=== PATIENT | male | born 1995 | race Caucasian/White ===

== ENCOUNTER 2017-07-06 14:51 | Emergency (ER) | payer OTHER ==
--- NOTE | 2017-07-06 15:03 | ER Report ---
History and Physical Time Seen By MD: 15:02 HPI/ROS CHIEF COMPLAINT: Fatigue, racing heart HISTORY OF PRESENT ILLNESS: 21-year-old male patient presents to emergency room with complaint of fatigue, racing heart. Patient states that he has been fatigued for the past week. He states that prior to that he did have a sore throat. He states he is not having any fevers, chills, nausea, vomiting or diarrhea. He states last night he was awoken in the middle the night by racing heart. He states that he laid there for a while was able to fall back asleep but felt concerned about his heart racing like he did. Patient states that he has not taken any medication for this. He denies any chest pain, nausea, vomiting or diarrhea. 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 REVIEW OF SYSTEMS: Respiratory: No cough, no dyspnea. Cardiovascular: As noted above Gastrointestinal: No vomiting, no abdominal pain. Musculoskeletal: No back pain. Allergies: Coded Allergies: No Known Drug Allergies (Unverified , 07/06/17) Home Meds No Active Prescriptions or Reported Meds Past Medical/Surgical History Patient has a past medical history of alcohol use. Patient has a surgical history of right shoulder surgery. Reviewed Nurses Notes: Yes Hx Substance Use Disorder: No Hx Alcohol Use: Yes (occ) Constitutional Vital Sign - Last 24 Hours 07/06/17 07/06/17 07/06/17 07/06/17 15:02 15:04 15:06 15:21 Temp 98.0 Pulse 64 72 58 Resp 18 9 B/P (MAP) 137/87 (104) 137/87 Pulse Ox 97 95 O2 Delivery Room Air 07/06/17 07/06/17 07/06/17 07/06/17 15:30 15:36 15:51 16:00 Pulse 52 62 Resp 12 16 B/P (MAP) 122/72 (89) 111/64 (80) Physical Exam General Appearance: The patient is alert, has no immediate need for airway protection and no current signs of toxicity. ENT: Tympanic membranes are pearly-le, auditory canals are patent, mixed mucous membranes are moist. Respiratory: Chest is non tender, lungs are clear to auscultation. Cardiac: regular rate and rhythm Gastrointestinal: Abdomen is soft and non tender, no masses, bowel sounds normal. Musculoskeletal: Neck: Neck is supple and non tender. Extremities have full range of motion and are non tender. Skin: No rashes or lesions. DIFFERENTIAL DIAGNOSIS: After history and physical exam differential diagnosis was considered for mononucleosis, tachycardia, abnormal escape rhythm. Medical Decision Making Data Points Result Diagram: 07/06/17 1515 07/06/17 1515 Laboratory Hematology Test 07/06/17 15:15 07/06/17 16:05 Red Blood Count 5.64 M/uL (4.00-5.60) Mean Corpuscular Volume 89.5 fL (80.0-96.0) Mean Corpuscular Hemoglobin 31.3 pg (26.0-33.0) Mean Corpuscular Hemoglobin Concent 35.0 g/dL (32.0-36.0) Red Cell Distribution Width 12.7 % (11.5-14.5) Mean Platelet Volume 8.3 fL (7.2-11.1) Neutrophils (%) (Auto) 79.9 % (39.4-72.5) Lymphocytes (%) (Auto) 12.6 % (17.6-49.6) Monocytes (%) (Auto) 6.6 % (4.1-12.4) Eosinophils (%) (Auto) 0.5 % (0.4-6.7) Basophils (%) (Auto) 0.4 % (0.3-1.4) Nucleated RBC Relative Count (auto) 0.0 /100WBC Neutrophils # (Auto) 7.3 K/uL (2.0-7.4) Lymphocytes # (Auto) 1.1 K/uL (1.3-3.6) Monocytes # (Auto) 0.6 K/uL (0.3-1.0) Eosinophils # (Auto) 0.0 K/uL (0.0-0.5) Basophils # (Auto) 0.0 K/uL (0.0-0.1) Nucleated RBC Absolute Count (auto) 0.00 K/uL Sodium Level 140 mmol/L (137-145) Potassium Level 4.0 mmol/L (3.5-5.0) Chloride Level 101 mmol/L (98-107) Carbon Dioxide Level 24 mmol/L (22-30) Blood Urea Nitrogen 13 mg/dl (9-21) Creatinine 1.20 mg/dl (0.66-1.25) Glomerular Filtration Rate Calc > 60.0 Random Glucose 106 mg/dl (75-110) Calcium Level 9.7 mg/dl (8.4-10.2) Total Bilirubin 1.4 mg/dl (0.2-1.3) Aspartate Amino Transf (AST/SGOT) 42 U/L (0-35) Alanine Aminotransferase (ALT/SGPT) 45 U/L (0-56) Alkaline Phosphatase 70 U/L (0-126) Total Protein 7.8 gm/dl (6.3-8.2) Albumin 4.7 g/dl (3.5-5.0) Monoscreen Negative (NEGATIVE) Group A Streptococcus Screen Negative (NEGATIVE) Chemistry Test 07/06/17 15:15 07/06/17 16:05 White Blood Count 9.1 k/uL (4.5-11.0) Red Blood Count 5.64 M/uL (4.00-5.60) Hemoglobin 17.7 g/dL (14.0-18.0) Hematocrit 50.5 % (42.0-52.0) Mean Corpuscular Volume 89.5 fL (80.0-96.0) Mean Corpuscular Hemoglobin 31.3 pg (26.0-33.0) Mean Corpuscular Hemoglobin Concent 35.0 g/dL (32.0-36.0) Red Cell Distribution Width 12.7 % (11.5-14.5) Platelet Count 255 K/uL (150-450) Mean Platelet Volume 8.3 fL (7.2-11.1) Neutrophils (%) (Auto) 79.9 % (39.4-72.5) Lymphocytes (%) (Auto) 12.6 % (17.6-49.6) Monocytes (%) (Auto) 6.6 % (4.1-12.4) Eosinophils (%) (Auto) 0.5 % (0.4-6.7) Basophils (%) (Auto) 0.4 % (0.3-1.4) Nucleated RBC Relative Count (auto) 0.0 /100WBC Neutrophils # (Auto) 7.3 K/uL (2.0-7.4) Lymphocytes # (Auto) 1.1 K/uL (1.3-3.6) Monocytes # (Auto) 0.6 K/uL (0.3-1.0) Eosinophils # (Auto) 0.0 K/uL (0.0-0.5) Basophils # (Auto) 0.0 K/uL (0.0-0.1) Nucleated RBC Absolute Count (auto) 0.00 K/uL Glomerular Filtration Rate Calc > 60.0 Calcium Level 9.7 mg/dl (8.4-10.2) Total Bilirubin 1.4 mg/dl (0.2-1.3) Aspartate Amino Transf (AST/SGOT) 42 U/L (0-35) Alanine Aminotransferase (ALT/SGPT) 45 U/L (0-56) Alkaline Phosphatase 70 U/L (0-126) Total Protein 7.8 gm/dl (6.3-8.2) Albumin 4.7 g/dl (3.5-5.0) Monoscreen Negative (NEGATIVE) Group A Streptococcus Screen Negative (NEGATIVE) EKG/Imaging EKG Interpretation 12 lead EKG: Rhythm: normal sinus rhythm with a ventricular rate of 60 bpm [place]: normal QRS: normal ST segments: normal Imaging Examination: CHEST PA AND LAT Comparison: 03/15/2017 History: Rapid heart rate last night. Findings: No consolidation, nodule, or peribronchial inflammation. No pneumothorax, edema, or effusion. Cardiac and hilar contour size is within normal limits. Right glenoid internal fixation. No acute osseous abnormality. IMPRESSION: No evidence of acute cardiopulmonary disease. Report Dictated By: Chris Morrissey MD at 07/06/2017 3:34 PM Report E-Signed By: Chris Morrissey MD at 07/06/2017 3:36 PM ED Course/Re-evaluation ED Course Patient was admitted and examined, history of physical or obtained. Differential diagnoses were considered. On examination lungs are clear, heart is regular. A CBC, CMP, strep screen, mono screen were done. Lab results were unremarkable, a chest x-ray and EKG were done which were also normal. I discussed the findings with the patient. Due to the rapid heart rate we will go ahead and place him on a Holter monitor so we can watch the heart for 48 hours. He is to bring them back in follow-up with Dr. Benson, physician at the [facility]. Patient verbalized understanding and agreement. He is to increase fluids, get plenty of rest. I did discuss the findings with the patient 's mother. Decision to Disposition Date: Jul 06, 2017 Decision to Disposition Time: 16:50 Depart Departure Latest Vital Signs Vital Signs Date Time Temp Pulse Resp B/P (MAP) Pulse Ox O2 Delivery O2 Flow Rate FiO2 07/06/17 16:00 111/64 (80) 07/06/17 15:51 62 16 07/06/17 15:06 95 07/06/17 15:04 98.0 Room Air Impression: Primary Impression: Racing heart beat Additional Impression: Fatigue Condition: Improved Disposition: HOME OR SELF-CARE New Scripts No Active Prescriptions or Reported Meds Patient Instructions: Fatigue (ED) Additional Instructions: Increase fluid intake. Get plenty of rest. Limit Caffeine use. Follow up with Dr. Benson this week. Return the Holter Monitor as directed. Return to the ER if condition worsens. Problem Qualifiers Additional Impression: Fatigue Fatigue type: unspecified Qualified Codes: R53.83 - Other fatigue JOVANNI LYON Jul 06, 2017 15:02
[2017-07-06 15:21] LABS: PLATELET COUNT, AUTOMATED 255 K/uL (150-450)
--- NOTE | 2017-07-06 15:29 | EKG ---
FACILITY: [facility] [place] PATIENT NAME: KASI ZIMMERMAN : [id number] MR: [id number] V: [id number] EXAM DATE: ORDERING PHYSICIAN: JOVANNI LYON TECHNOLOGIST: ROXY Test Reason : RAPID HR Blood Pressure : / mmHG Vent. Rate : 060 BPM Atrial Rate : 060 BPM P-R Int : 154 ms QRS Dur : 092 ms QT Int : 426 ms P-R-T Axes : 045 071 043 degrees QTc Int : 426 ms Normal sinus rhythm Incomplete right bundle branch block When compared with ECG of 15-MAR-2017 23:16, No significant change was found Confirmed by JUDI MISTRY ([id number]) on 07/06/2017 10:01:37 PM Referred By: CAMRON Confirmed By:JUDI MISTRY
--- NOTE | 2017-07-06 15:41 | RADIOLOGY IMAGING REPORT ---
[place] [facility] [place]IENT NAME: Lane Verde : 1995 MR: [id number] V: [id number] EXAM DATE: ORDERING PHYSICIAN: JOVANNI LYON TECHNOLOGIST: Location: [facility] Patient: Lane Verde : 1995 Visit/Account:[id number] Date of Sevice: 07/06/2017 Examination: CHEST PA AND LAT Comparison: 03/15/2017 History: Rapid heart rate last night. Findings: No consolidation, nodule, or peribronchial inflammation. No pneumothorax, edema, or effusio n. Cardiac and hilar contour size is within normal limits. Right glenoid internal fixation. No acute osseous abnormality. IMPRESSION: No evidence of acute cardiopulmonary disease. Report Dictated By: Chris Morrissey MD at 07/06/2017 3:34 PM Report E-Signed By: Chris Morrissey MD at 07/06/2017 3:36 PM WSN:[id number]
[2017-07-06 16:00] VITALS: BP 111/64
--- NOTE | 2017-07-09 06:48 | RT HOLTER TEST ---
FACILITY: [facility] PATIENT NAME: KASI ZIMMERMAN : [id number] MR: [id number] V: [id number] EXAM DATE: ORDERING PHYSICIAN: JOVANNI LYON TECHNOLOGIST: TARA Hook-up date: 2017-07-06 16:26:00 Duration: 47:59:00 Test Indications: Medications: [id number] QRS complexes * Ventricular ectopics which represent % of total QRS comp. 5 Supraventricular ectopics which represent <1 % of total QRS comp. * Paced QRS complexes which represent % of total QRS comp. VENTRICULAR ECTOPY * Isolated * Bigeminal Cycles * Couplets * Runs * Beats in Runs * Beats LONGEST at * BPM at :: -- * Beats FASTEST at * BPM at :: -- SUPRAVENTRICULAR ECTOPY 5 Isolated 0 Couplets 0 Runs 0 Beats in Runs * Beats LONGEST at * BPM at :: -- * Beats FASTEST at * BPM at :: -- HEART RATES 41 MIN at 04:07:09 2017-07-07 66 AVG 156 MAX at 07:41:04 2017-07-07 LONGEST RR 1.592 secs at 05:45:51 2017-07-07 S-T LEVELS Channel 1 -12.800 mm MIN at 16:26:00 2017-07-06 -12.800 mm MAX at 16:26:00 2017-07-06 Channel 3 -12.800 mm MIN at 16:26:00 2017-07-06 -12.800 mm MAX at 16:26:00 2017-07-06 Very rare supraventricular ectopy. No couplets, triplets, or runs. No significant ventricular ectopy noted. No pauses. ST elevation was noted in leads 1 and 3 persistently throughout the recording. Confirmed by STEPHANIE LOPEZ ([id number]) on 07/09/2017 6:47:24 AM Referred By: Overread By: STEPHANIE LOPEZ
== END 2017-07-06 16:56 | disposition home or self-care (01) ==
LOC: ER 15:51
DX: R00.0 Tachycardia, unspecified (principal); R53.83 Other fatigue
CPT/HCPCS: 36415; 71046; 82040; 82247; 82310; 82374; 82435; 82565; 82947; 84075; 84132; 84155; 84295; 84450; 84460; 84520; 85025; 86308; 87081; 87880; 93005; 93225; 93226; 99284

== ENCOUNTER → 2017-07-30 | Outpatient (CLI) | payer OTHER ==
--- NOTE | 2017-07-30 15:41 | RADIOLOGY IMAGING REPORT ---
FACILITY: [facility] [place] PATIENT NAME: Lane Verde : 1995 MR: [id number] V: [id number] EXAM DATE: ORDERING PHYSICIAN: GISSEL TRACEY TECHNOLOGIST: Location: [facility] Patient: Lane Verde : 1995 Visit/Account:[id number] Date of Sevice: 07/30/2017 Examination: MR brain without contrast History: Headaches, dizziness, pain behind right ear Comparison: None Technique: Multiplane MR imaging was performed through the brain without contrast. Findings: Diffusion: None Ventricles: Normal Midline shift: None Extraaxial fluid: None. Midline craniocervical structures: Normal Parenchyma: Normal Vascular flow voids: Normal Orbits and paranasal sinuses: Normal Impression: Normal non-contrast brain MR. Report Dictated By: Tony Watkins MD at 07/30/2017 3:11 PM Report E-Signed By: Tony Watkins MD at 07/30/2017 3:36 PM WSN:[email or web address]
== END ==
LOC: MRI 00:45
PROVIDERS: ATTEND Emergency Medicine Sports Medicine
DX: R42 Dizziness and giddiness (principal); R51 Headache
CPT/HCPCS: 70551

== ENCOUNTER → 2017-09-02 | Outpatient (CLI) | payer OTHER ==
--- NOTE | 2017-09-02 13:25 | RADIOLOGY IMAGING REPORT ---
FACILITY: [facility] - [place] PATIENT NAME: Lane Verde : 1995 MR: [id number] V: [id number] EXAM DATE: ORDERING PHYSICIAN: Gi STEIN TECHNOLOGIST: Location: [facility] Patient: Lane Verde : 1995 Visit/Account:[id number] Date of Sevice: 09/02/2017 CAROTID HISTORY: Vertigo and dizziness COMPARISON: None. FINDINGS: Grayscale, duplex and color Doppler interrogation of the extracranial carotid and vertebral arteries was performed bilateral. On the right, peak systolic velocities within the common and internal carotid arteries are 138 and 10 3 cm/sec respectively. No significant plaque identified. Antegrade flow within the common, internal and external carotid arteries as well as vertebral artery. ICA/CCA ratio 0.8. On the left, peak systolic velocities within the common and internal carotid arteries are 164 and 111 cm/sec respectively. No significant plaque identified. Antegrade flow within the common, internal and external carotid arteries as well as vertebral artery. ICA/CCA ratio 0.7. IMPRESSION: No hemodynamically significant lesions identified Velocity criteria are extrapolated from diameter data as defined by the Society of Radiologists in Ul trasound Consensus Conference Radiology 2003; 229;340-346 Report Dictated By: Andie Moya MD at 09/02/2017 1:12 PM Report E-Signed By: Andie Moya MD at 09/02/2017 1:20 PM WSN:[id number]
== END ==
LOC: US 00:47
PROVIDERS: ATTEND Otolaryngology
DX: H81.43 Vertigo of central origin, bilateral (principal)
CPT/HCPCS: 93880